=== PATIENT | male | born 1945 | race Caucasian/White ===

== ENCOUNTER → 2016-10-12 | Outpatient (CLI) | payer OTHER ==
[2016-10-12 08:08] LABS: ASPARTATE AMINO TRANSFERASE 23 IU/L (21-57); BILIRUBIN,TOTAL 1.2 mg/dL (0.3-1.2); BLOOD UREA NITROGEN 37 mg/dL (7-22); BUN/CREATININE RATIO 30.83 (6-20); CALCIUM 9.4 mg/dL (8.7-10.7); CHLORIDE 105 meq/L (98-112); CREATININE 1.2 mg/dL (0.70-1.50); EST GLOMERULAR FILTRATION > 60 (>60 ml/min/1.73m(2)); GLUCOSE 97 mg/dL (78-110); HDL CHOLESTEROL 57 mg/dL (40-150); POTASSIUM 4.1 meq/L (3.8-5.2); SODIUM 141 meq/L (135-145); TOTAL PROTEIN 7.7 g/dL (6.1-8.0); TRIGLYCERIDES 78 mg/dL (44-200)
[2016-10-12 08:24] LABS: BASOPHILS # (AUTO) 0.03 10*3/UL; BASOPHILS % (AUTO) 0.6 % (0-1); HEMOGLOBIN 16.9 g/dL (14.0-18.0); IMM GRAN % (AUTO) 0.2 % (0-5); IMM GRAN# (AUTO) 0.01 10*3/UL; LYMPHOCYTES % (AUTO) 28.1 % (10-50); MEAN CORPUSCULAR HEMOGLOBIN 32.4 PG (27-31); MEAN CORPUSCULAR HGB CONC 33.8 g/dL (33-37); MONOCYTES # (AUTO) 0.62 10*3/UL (0.3-0.8); MONOCYTES % (AUTO) 11.6 % (5-15); NEUTROPHILS # (AUTO) 2.85 10*3/UL; NEUTROPHILS % (AUTO) 53.5 % (50-80); RDW COEFFICIENT OF VARIATION 13.6 % (11.5-14.5); RED BLOOD COUNT 5.22 10^6/uL (4.70-6.10); WHITE BLOOD COUNT 5.33 10^3/uL (4.8-10.8)
[2016-10-12 08:29] LABS: PLATELET MORPHOLOGY COMMENT NORMAL MORPHOLOGY (NORM)
== END ==
LOC: LAB 07:42
PROVIDERS: ATTEND Internal Medicine
DX: E78.5 Hyperlipidemia, unspecified (principal); I10 Essential (primary) hypertension; G47.33 Obstructive sleep apnea (adult) (pediatric); R79.9 Abnormal finding of blood chemistry, unspecified; F17.210 Nicotine dependence, cigarettes, uncomplicated
CPT/HCPCS: 36415; 80053; 80061; 82550; 84443; 85025

== ENCOUNTER → 2016-10-15 | Outpatient (CLI) | payer OTHER | LOC: MMPC 11:11 | PROVIDERS: ATTEND Internal Medicine | DX: I10 Essential (primary) hypertension (principal) | CPT/HCPCS: 99213; G0463 ==

== ENCOUNTER 2018-02-13 06:30 | Observation (INO) ==
[~2018-02-13 06:30] MED LIST: LIDOCAINE W/ SODIUM BICARB 0.5 ML SYR ONE; LIDOCAINE W/ SODIUM BICARB 0.5 ML SYR SUBD ONE; Lactated Ringers 1,000 ML PRIMARY IV ONE; Sodium Chloride 0.9% 250 ML IV ONE; Vancomycin Inj 1gm vial ONE; ceFAZolin Inj 2gm (Premix) 2 GM/50 ML BAG IV ONE
[2018-02-13] MEDS ORDERED: Metoclopramide Inj 10 MG/2 ML VIAL ONE (06:51)
[2018-02-13] MEDS ORDERED: REMIFENTANIL 1 MG/1 ML IV ONE ×4 (07:01→11:02)
[2018-02-13] MEDS ORDERED: Sodium Chloride 0.9% vial 40 ML ONE (07:03)
[2018-02-13] MEDS ORDERED: fentaNYL Inj 250 MCG/5 ML VIAL ONE (07:08)
[2018-02-13] MEDS ORDERED: PROPOFOL 10 MG/1 ML (200 MG/20 ML) VIAL IV ONE ×2 (07:08→09:39)
[2018-02-13] MEDS ORDERED: MIDAZOLAM 5 MG/1 ML ONE (07:08)
[2018-02-13] MEDS ORDERED: LIDOCAINE MPF 2% - 5 ML (20 MG/1 ML) ONE ×2 (07:08→11:34)
[2018-02-13] MEDS ORDERED: IPRATROPIUM/ALBUTEROL SULFATE 3 ML NEB NEB ONE ×2 (07:17→07:19)
[2018-02-13] MEDS ORDERED: SUCCINYLCHOLINE CHLORIDE 20 MG/1 ML - 10 ML ONE (07:29)
[2018-02-13] MEDS ORDERED: GLYCOPYRROLATE 0.2 MG/1 ML VIAL ONE (07:31)
[2018-02-13] MEDS ORDERED: Sodium Chloride 0.9% 200 ML IV ONE (07:41)
[2018-02-13] MEDS ORDERED: THROMBIN (BOVINE) 20,000 UNIT KIT TOPICAL ONE (08:01)
[2018-02-13] MEDS ORDERED: Vancomycin Inj 1gm vial ONE (08:01)
[2018-02-13] MEDS ORDERED: Propofol 1,000 MG/100 ML VIAL IV ONE (08:02)
[2018-02-13] MEDS ORDERED: Sodium Chloride 0.9% vial 10 ML ONE (08:56)
[2018-02-13] MEDS ORDERED: BACITRACIN 50,000 UNIT VIAL IRRIG ONE (08:56)
[2018-02-13] MEDS ORDERED: TOBRAMYCIN SULFATE 1.2 GM VIAL ONE (11:05)
[2018-02-13] MEDS ORDERED: HYDROmorphone 2 MG/1 ML ONE ×2 (11:24→13:13)
[2018-02-13] MEDS ORDERED: Lactated Ringers 1,000 ML PRIMARY IV ONE (12:06)
[2018-02-13] MEDS ORDERED: Nalbuphine Inj 20 MG/ML Ampule ONE (12:23)
--- NOTE | 2018-02-13 12:27 | GEN.OPNOTE ---
Operative Note Surgeon: Misael Bay MD Tobacco Checkout Clerk: Aristides Mckenzie PA-C Procedure Date: 02/13/18 Preoperative Diagnosis: Cervical Spondylosis with myelopathy Postoperative Diagnosis: Same Procedure: Anterior cervical decompression and fusion, 2 levels Procedure Code - Neurosurgery: 78163 : Lumbar Transforaminal Epidural (Add'l Levels), 73715 : L/S Spine Facet/Med, 2nd, Other Estimated Blood Loss (mL): 10 Fluids: See Anesthesia Complications: None Findings: 1. Anterior Cervical Decompression; , 2. Anterior Cervical Arthrodesis; , 3. Anterior Cervical Plating; 4. Allograft Structural Graft; 57045 X2 5. Preparation of bone graft: A. Local autograft, same incision; B. Isle of morselized iliac crest autograft, separate incision; C. [place] of bone marrow aspirate, iliac crest; D. Addition of osteopromotive calcium compound; allograft DBM; 6. Intraoperative microsurgical technique 7. Intraoperative fluoroscopic navigation, [id number] 8. Intraoperative continuous neural monitoring, motor and sensory EXPOSURE: A right transverse neck incision at the abnormal level which was confirmed using fluoroscopy was made through skin, subcutaneous fat and the platysma muscle. Using sharp and blunt dissection, the anterior spine was exposed medial to the sternocleidomastoid muscle and carotid sheath and the longus coli muscles were carefully reflected off the vertebrae using electrocautery and a deep self-retaining retractor was place beneath them. Thereafter, distraction pins were place within the vertebral bodies above and below the abnormal levels. The inner space was then distracted to improve exposure during the decompression. DECOMPRESSION: While distracting the interspace, a radical discectomy was performed. After removal of the disk using curettes considerable posterior osteophytosis was encountered particularly on the left and a large disc herniation was identified. The osteophyte was removed using a high speed drill equipped with a zhou bur, microsurgical technique and the intraoperative microscope for visualization. There was clear evidence of compression upon the exiting nerve root and spinal cord. The posterior longitudinal ligament was taken down and wide foraminotomies were fashioned on both sides. The epidural space was explored extensively confirming no further compression upon the neural elements. An identical decompression was performed at C5-6 and C6-7. ARTHRODESIS: After the decompression, the height of the inner space was measured and an allograft bone graft was selected which would fit snuggly within the space. The graft was loaded with bone graft which was prepared as described. The graft was placed using the fluoroscope to assess the graft position so that it could be countersunk appropriately. HARVEST / PREPARATION of BONE GRAFT: The "bone graft" was prepared from the patient's own bone derived from the left hip collected by curetting bone from the hip through a separate slab incision(-84275). This morselized bone was admixed with bone marrow aspirate also obtained from the hip (-66256). Autologous local bone which was removed during the decompression through the same incision used for the fusion was stripped of surrounding soft tissues, morselized (-95951) and mixed with osteopromotive calcium compound as well as allograft demineralized bone matrix (-17059), and this was combined with the previously described hip graft and concentrated bone marrow aspirate to form the "bone graft." ANTERIOR PLATE INSTRUMENTATION: Having completed the decompression and placement of the interbody spacers, an Alphatec Trestle plate was selected which spanned the levels and also could be contoured to the anterior aspect of the patient's cervical spine. Osteophytes along the anterior spine were removed to allow the plate to conform to the spine appropriately. The plate was then secured to the spine using 12-14 mm screws, all of which were locked into position using the locking mechanism of the plate. Additional bone graft material was placed around the plate and around the implanted spacer within the inner space. NEED FOR MULTISENSOR INTELLIGENCE OFFICER: Aristides Mckenzie PA-C, was instrumental throughout the operation to assist with exposure of the neural structures and protect them as the bony elements were removed. He was also instrumental during placement of the implant(s) which often takes more than two hands to perform safely and efficiently. OTHER TOOLS USED / UTILITY: All manipulation of the neural elements was performed using the microscope for visualization. As well, the fluoroscope was used to confirm the levels as indicated as well as to assist during implant placement and later to assess the patient's spinal alignment. There were no intra operative complications. Motor and sensory monitoring was performed throughout the procedure by a certified monitoring exhaust emissions automotive technician in the room in communication with a remote monitoring physician and no abnormal neurological findings were encountered. CLOSURE: The wound was irrigated with copious amounts of antibiotic impregnated saline solution and immaculate hemostasis was achieved using thrombin soaked Gelfoam, bone wax along the bony margins, as well as electrocautery. Surgicel was used to cover the implanted graft and plate. A drain was placed in the pre-vertebral space and tunneled to an exit site lateral to the formed incision. The wound was then closed in anatomical layers using Vicryl suture in the subcutaneous tissue layers followed by Steri-Strips on the skin. No complications Hemovac drain X1 Blood loss minimal Authenticated by Dr. Bay electronically 02/13/2018, 17:23.
[2018-02-13] MEDS ORDERED: LIDOCAINE W/ SODIUM BICARB 0.5 ML SYR SUBD PRN (12:51)
[2018-02-13] MEDS ORDERED: ONDANSETRON 4 MG/2 ML VIAL IVP PRN ×2 (12:51→13:32)
[2018-02-13] MEDS ORDERED: Prochlorperazine Edisylate Inj 10mg/2ml vial IVP PRN (12:51)
[2018-02-13] MEDS ORDERED: HYDROmorphone 2 MG/1 ML IVP PRN (12:51)
--- NOTE | 2018-02-13 12:53 | CRNA.PROGR ---
Anesthesia Recovery Phase I - Post Anesthesia Evaluation Patient's Condition on Arrival in Phase I: Stable Patient's Condition on Arrival in Phase II: Stable Pain Level: 1
--- NOTE | 2018-02-13 12:53 | CRNA.PROGR ---
Anesthesia Time - - Start date: 02/13/18 End date: 02/13/18 - Procedure/Recovery Time Anesthesia : Time In: 08:57 Anesthesia : Time Out: 12:39 Anesthesia : Total Time: 222 - Total Anesthesia Time Total Anesthesia Time (minutes): 222 - Other Weight: 79.832 kg Height: 5 ft 9 in Body Mass Index (BMI): 25.9 Physical Status: P2 Anesthesia Type: General Anesthesia : ET
--- NOTE | 2018-02-13 13:29 | DI ---
CERVICAL SPINE SERIES, 02/13/2018 12:22 PM: Clinical History: Status post fusion. Immediate postoperative film. Previous Exam: 04/19/2011. AP and lateral views are submitted. The patient is status post anterior fusions at C5-6 and C6-7. Bon e grafts are in the appropriate position. There is disc space narrowing at C3-4. C1 articulates fiona lly with C2 and the occiput. There is prevertebral soft tissue swelling secondary to the recent surge ry. Reading: Status post anterior fusions at C5-6 and C6-7. Bone grafts are in the appropriate position.
[2018-02-13] MEDS ORDERED: HYDROcodone-APAP 5 MG -325 MG TABLET PO PRN (13:32)
[2018-02-13] MEDS ORDERED: ACETAMINOPHEN 325 MG TABLET PO PRN (13:32)
[2018-02-13] MEDS ORDERED: 1/2NS + 20mEq KCL 1,000 ML PRIMARY IV SCH (13:32)
[2018-02-13] MEDS ORDERED: Ondansetron ODT Tab 4 MG TAB PO PRN (13:32)
[2018-02-13] MEDS ORDERED: MORPHINE SULFATE 2 MG/1 ML IVP PRN ×2 (13:32)
[2018-02-13] MEDS ORDERED: PANTOPRAZOLE 40 MG TABLET PO SCH (16:30)
[2018-02-13] MEDS: ceFAZolin Inj 2gm (Premix) 2 GM/50 ML BAG IV SCH (17:39)
[2018-02-13] MEDS ORDERED: Rosuvastatin Tab 20 MG TAB PO SCH (21:00)
[2018-02-13] MEDS ORDERED: BENAZEPRIL HCL 40 MG PO SCH (21:00)
[2018-02-13] MEDS ORDERED: ATORVASTATIN 40 MG TABLET PO SCH (21:00)
[2018-02-14 00:07] VITALS: RESP 20
[2018-02-14] MEDS: ceFAZolin Inj 2gm (Premix) 2 GM/50 ML BAG IV SCH (01:30)
[2018-02-14] MEDS ORDERED: ceFAZolin Inj 2gm (Premix) 2 GM/50 ML BAG IV ONE (06:00)
[2018-02-14] MEDS ORDERED: Lactated Ringers 1,000 ML PRIMARY IV ONE (06:00)
--- NOTE | 2018-02-14 07:52 | CRNA.PROGR ---
Anesthesia Note - Progress Notes Anesthesia Progress Note: Post OP Anesthesia Note Pt is sitting up in bed reading a book, he just finished breakfast of regular diet and is tolerating well. He has been up ambulating and tolerating that as well. Pain is well under control. Current VS are stable. Vital Signs - Last Taken Temperature 99.6 F 02/14/18 04:59 Pulse Rate 98 02/14/18 04:59 Respiratory Rate 20 02/14/18 04:59 Blood Pressure 140/92 02/14/18 04:59 Pulse Ox 91 02/14/18 04:59
--- NOTE | 2018-02-14 08:30 | PDOC(PROG) ---
Subjective Post Op Day: 1 Pain Management: PO Moser Catheter: No Flatus: Yes Diet: Regular Ambulating: Yes Concerns / Additional Information: Doing well Paresthesias resolved No swallowing problems Exam +5/5, sensation in tact Wound clean, dry and soft Drain 60 0500; Recheck later and remove if acceptable Discharge once drain out. Objective : Data - Vital Signs Vital Signs and I&O: Vital Signs - Last Taken Temperature 99.6 F 02/14/18 04:59 Pulse Rate 98 02/14/18 04:59 Respiratory Rate 20 02/14/18 04:59 Blood Pressure 140/92 02/14/18 04:59 Pulse Ox 91 02/14/18 04:59 Intake and Output (24hr x 4 totals) 02/12/18 02/13/18 02/14/18 02/15/18 05:59 05:59 05:59 05:59 Intake Total 4222 / 4222 240 / 240 Output Total 3045 / 3045 400 / 400 Balance 1177 / 1177 -160 / -160
--- NOTE | 2018-02-14 10:23 | PT.PROG ---
Progress Note Progress Note: S: Pt states that he is feeling good and is excited to go home. Pt reported no pain or symptoms of dizziness. O: Pt was alert and oriented. Pt was connected to hemovac. Tx consisted of safe and independent transfer supine to standing, ambulation of 300 ft and 12 stairs up and down with no assistance. Pt was instructed to lift no more than 10 lbs and to keep his cervical ROM less than end range. Pt was left seated EOB with nurse. A: Pt demonstrated independent and safe bed mobility, all transfers, ambulation , and stairs. P: All goals met; d/c from PT. Deborah Tamayo, SPT
--- NOTE | 2018-02-14 11:53 | PTI REPORT ---
Thank you for the referral of Milo Mccurdy. He was seen on 02/13/18 for an inpatient evaluation secondary to a cervical fusion. SUBJECTIVE: The patient is a 72-year-old male who underwent a cervical fusion earlier this morning. The patient reports that he is doing well. He reports minimal pain. He states mainly he is sore in his throat musculature area and has soreness with swallowing. The patient states that he lives here in [place] with his and he does have three stairs in his home. The patient was not using an assistive device prior to his surgery and does not plan on using one after. He states that he has been up a couple of times with nursing staff so far and has been doing relatively well; he just complains of a little lightheadedness and dizziness with initial transfers. PAST MEDICAL HISTORY: Past medical history can be found in the patient's medical record. OBJECTIVE FINDINGS: General observations: The patient was alert and oriented to setting upon PT arrival. The patient did have an IV in place and also a hemovac over his surgical wound. Bed mobility: The patient was able to independently move from supine to seated edge of bed. He did need to sit edge of bed for a few minutes due to some lightheadedness and dizziness. The patient demonstrated good seated balance. The patient was able to perform a seated to supine transfer independently. Transfers: The patient was able to independently transfer from seated to standing. The patient demonstrated fair initial standing balance and complained of some lightheadedness and dizziness with initial standing balance. Ambulation: The patient was able to ambulate 100 feet. He did have a little unsteadiness at times due to some dizziness, but overall did relatively well with contact guard assist x1 for safety and no use of assistive device. ASSESSMENT: The patient has good rehab potential. Problem List: Weakness Some dizziness and lightheadedness with changing positions Short-Term Goals: To be met by discharge from inpatient: Patient will be able to ambulate at least 150 feet without an assistive device, safely and independently. Patient will be able to ascend and descend a flight of stairs safely and independently in order to return back home. Long-Term Goals: To be met following discharge from inpatient: Patient will attend outpatient physical therapy two weeks post op in order to start rehabilitation status post cervical fusion. TREATMENT PLAN: Patient will be seen one more time tomorrow morning in order to stair train prior to him being discharged home. INITIAL TREATMENT: Treatment today consisted of the initial evaluation. The patient was instructed on lifting precautions secondary to his cervical fusion of less than 10 pounds. The patient was also educated not to perform extreme cervical motions. The patient was left in bed with alarm set and call light within reach. [facility]
[2018-02-14 12:11] VITALS: BP 139/108; TEMP 98.6; O2SAT 91
--- NOTE | 2018-02-14 13:08 | PDOC(PROG) ---
Subjective Post Op Day: 1 Pain Management: PO Moser Catheter: No Flatus: Yes Diet: Regular Ambulating: Yes Concerns / Additional Information: Drain output low enough to remove. Drain out and discharge Objective : Data - Vital Signs Vital Signs and I&O: Vital Signs - Last Taken Temperature 98.6 F 02/14/18 12:10 Pulse Rate 92 02/14/18 12:10 Respiratory Rate 20 02/14/18 12:10 Blood Pressure 139/108 02/14/18 12:10 Pulse Ox 91 02/14/18 12:10 Intake and Output (24hr x 4 totals) 02/12/18 02/13/18 02/14/18 02/15/18 05:59 05:59 05:59 05:59 Intake Total 4222 / 4222 360 / 360 Output Total 3045 / 3045 410 / 410 Balance 1177 / 1177 -50 / -50
--- NOTE | 2018-02-14 14:16 | OTI REPORT ---
Thank you for the referral of Milo Mccurdy. He was seen on 02/13/18 for an occupational therapy inpatient evaluation status post cervical fusion. SUBJECTIVE: The patient is a 72-year-old male who is post op cervical fusion. Prior to admission the patient lived at home with his . He does have three stairs to enter his home. He was independent with ADLs including dressing self and driving. The patient reports that prior to his surgery he had a lot of radicular symptoms running down his left arm. The patient did report he was having some swallowing difficulties and he has a lot of pain when swallowing. PAST MEDICAL HISTORY: Past medical history can be found in the patient's medical record. OBJECTIVE FINDINGS: Bed mobility: The patient was able to come from supine to sit with stand by assist. Activities of daily living: While sitting edge of bed, the patient demonstrated being able to doff and don his socks independently. Range of motion: Upper extremity range of motion was 0 to 150 degrees of shoulder flexion without pain. Swallow: The therapist did educate the patient to sit upright to decrease chances of aspiration and to stick to pureed to mechanical soft type foods. The patient was educated on effortful swallows in case in couple of weeks he is still struggling with swallowing. The patient did take a drink of water. He did not demonstrate signs of aspiration when sitting up. The patient did lay down direction after this and had a coughing episode and had to sit back up. ASSESSMENT: Overall the patient is doing well with simple ADLs. The patient did not want any adaptive equipment for dressing. He was able to complete bed transfer with stand by assist. He did benefit from swallow education/precautions. Short-Term Goals: To be met by discharge from inpatient: Patient will be educated in swallow precautions. Patient will be able to complete functional transfers independently. Long-Term Goals: To be met following discharge from inpatient: Patient will be able to complete all ADLs independently and safely once returned home. TREATMENT PLAN: Patient will be seen for initial evaluation only. The patient is doing well and will be discharged from OT. INITIAL TREATMENT: Treatment today consisted of the initial evaluation only. SUSANNE
== END 2018-02-14 13:09 | disposition home or self-care (01) ==
LOC: MED/SURG 06:30 → OR 06:30
PROVIDERS: ADMIT Neurological Surgery; ATTEND Neurological Surgery